=== PATIENT | male | born 1955 | race Caucasian/White ===

== ENCOUNTER 2020-03-31 09:39 | Inpatient (IN) | payer MEDICARE, OTHER ==
[~2020-03-31] VITALS: Ht 180.3 cm; Wt 95.5 kg
[2020-03-31] MEDS ORDERED: NITROGLYCERIN SINGLE TAB 0.4 MG SL ONE (10:23)
[2020-03-31] MEDS ORDERED: ASPIRIN 81 MG TABLET CHEW ONE (10:23)
[2020-03-31] MEDS ORDERED: ASPIRIN 81 MG TABLET CHEW PO ONE (10:30)
[2020-03-31] MEDS ORDERED: NITROGLYCERIN SINGLE TAB 0.4 MG SL PRN (10:30)
[2020-03-31] MEDS ORDERED: SODIUM CHLORIDE FLUSH 10ML SYR IVF ONE (10:30)
[2020-03-31] MEDS ORDERED: PLEASE ENTER ALLERGIES MC SCH (10:30)
--- NOTE | 2020-03-31 10:30 | NUR ---
First contact with pt. Pt c/o 02/05 chest tightness and SOB x2 days. Pt states he drove up from [place] x2 days ago. Pt speaking in 2-3 word sentences, resp rapid but lungs clear. Pt very SOB with speaking or exertion. PIV inserted and pt medicated per OCT. Continuous heart, oxygen and BP monitors applied, all safety measures observed.
[2020-03-31 10:45] LABS: BASOPHILS # (AUTO) 0.03 x10^3/uL (0-0.1); BASOPHILS % (AUTO) 0 % (0-1); EOSINOPHILS # (AUTO) 0.13 x10^3/uL (0-0.4); EOSINOPHILS % (AUTO) 2 % (1-7); LYMPHOCYTES # (AUTO) 1.96 x10^3/uL (1-3.4); LYMPHOCYTES % (AUTO) 22 % (22-44); MD NO; MEAN CORPUSCULAR HEMOGLOBIN 31.2 pg (27.5-34.5); MEAN CORPUSCULAR HGB CONC 33.2 g/dL (33.2-36.2); MEAN CORPUSCULAR VOLUME 93.9 fL (81-97); MEAN PLATELET VOLUME 8.5 fL (7.4-10.4); MONOCYTES # (AUTO) 0.89 x10^3/uL (0.2-0.8); MONOCYTES % (AUTO) 10 % (2-9); NEUTROPHILS # (AUTO) 5.82 x10^3/uL (1.8-6.8); NEUTROPHILS % (AUTO) 66 % (42-75); PLATELET COUNT 151 x10^3/uL (130-400); RED BLOOD COUNT 4.82 x10^6/uL (4.38-5.82); RED CELL DISTRIBUTION WIDTH 12.7 % (9.4-14.8)
[2020-03-31] MEDS ORDERED: MODA200T2 PO (10:52)
[2020-03-31] MEDS ORDERED: MEMA10TA PO (10:52)
[2020-03-31] MEDS ORDERED: PRAM0.255 PO (10:52)
[2020-03-31] MEDS ORDERED: AMLO-150 PO (10:52)
[2020-03-31] MEDS ORDERED: [UNRECOGNIZED DRUG - CODE] PO (10:52)
[2020-03-31] MEDS ORDERED: BUPR300T94 PO (10:52)
[2020-03-31] MEDS ORDERED: ESCI5TAB PO (10:52)
[2020-03-31] MEDS ORDERED: MECL-101 PO (10:52)
[2020-03-31] MEDS ORDERED: ATOR10TA PO (10:52)
[2020-03-31] MEDS ORDERED: LEVO75TA5 PO (10:52)
[2020-03-31 10:53] LABS: ALBUMIN 3.7 g/dL (3.4-5.0); ANION GAP 6 mmol/L (5-15); CALCIUM 8.6 mg/dL (8.5-10.1); CHLORIDE 108 mmol/L (98-107)
[2020-03-31 10:58] LABS: TROPONIN I < 0.015 ng/mL (0.000-0.045)
--- NOTE | 2020-03-31 10:59 | NUR ---
Pt states chest tightness unchanged after NTG admin. Pt placed on 2L O2 via NC. Pt provided pillow and positioned for comfort in bed.
--- NOTE | 2020-03-31 11:04 | NUR ---
Discussed pt condition with Dr. Vides. Orders recieved for 500mL NS bolus. IVf initiated per order.
[2020-03-31] MEDS ORDERED: DIPHENHYDRAMINE 50 MG/ML, 1ML ONE (11:27)
[2020-03-31] MEDS ORDERED: methylPREDNISolone SOD SUCC 125 MG/2 ML ONE (11:27)
[2020-03-31] MEDS ORDERED: DIPHENHYDRAMINE 50 MG/ML, 1ML IVPush ONE (11:30)
[2020-03-31] MEDS ORDERED: methylPREDNISolone SOD SUCC 125 MG/2 ML IVPush ONE (11:30)
[2020-03-31] MEDS ORDERED: SODIUM CHLORIDE 0.9% 1,000ML IVBOLUS ONE (11:30)
--- NOTE | 2020-03-31 11:43 | NUR ---
Pt medicated per MAR for CTA, POC discussed. Pt requests this RN to notify pt's SO Amador at [phone] once decision to admit or dc is made by .
--- NOTE | 2020-03-31 12:15 | NUR ---
Pt in CT.
[2020-03-31] MEDS ORDERED: OMNIPAQUE 350 MG/ML, 75ML BOTTLE ONE (12:26)
--- NOTE | 2020-03-31 12:34 | NUR ---
Pt back from CT. Pt resting in bed with eyes closed, resps appear less labored and slower. Pt reports decreased SOB but still present with exertion and extended talking. Pt repositioned for comfort in bed, denies other needs.
[2020-03-31] MEDS ORDERED: HEPARIN 25,000 UNITS/250ML PMX 250 ML ONE (12:48)
[2020-03-31] MEDS ORDERED: HEPARIN 5,000 UNITS/ML, 1ML ONE (12:48)
[2020-03-31] MEDS ORDERED: HEPARIN 5,000 UNITS/ML, 1ML IV PRN (13:00)
[2020-03-31] MEDS ORDERED: HEPARIN 5,000 UNITS/ML, 1ML IV ONE (13:00)
[2020-03-31] MEDS ORDERED: HEPARIN 25,000 UNITS/250ML PMX 250 ML IV PRN (13:00)
--- NOTE | 2020-03-31 13:06 | NUR ---
Attempted to call Amador to update him that pt will be admitted to the hospital. No answer, message left.
--- NOTE | 2020-03-31 14:02 | NUR ---
break RN note: pt resting on gurney, resps even and unlabored. pt able to speak in full sentences without difficulty. pt is nsr on color television console monitor with no ectopy, rate 80s. Echo in progress at bedside. awaiting echo read and dispo.
[2020-03-31] MEDS ORDERED: SODIUM CHLORIDE FLUSH 10ML SYR IVF PRN (15:00)
--- NOTE | 2020-03-31 15:25 | NUR ---
report given back to primary RN Jacqueline who is assuming care.
--- NOTE | 2020-03-31 15:31 | NUR ---
Pt resting in bed looking at his phone, BIANCA, denies needs.
--- NOTE | 2020-03-31 15:38 | NUR ---
Report called to Radha HOFF on med tele. Floor ready for pt transport.
--- NOTE | 2020-03-31 16:49 | NUR ---
Meal tray ordered for pt.
[2020-03-31] MEDS ORDERED: DOCUSATE 100 MG CAPSULE PO PRN (17:00)
[2020-03-31] MEDS ORDERED: ACETAMINOPHEN 325 MG TABLET PO PRN (17:00)
[2020-03-31] MEDS ORDERED: MECLIZINE 25 MG TABLET PO PRN (17:00)
[2020-03-31] MEDS ORDERED: hydrALAzine 20 MG/ML, 1ML IVPush PRN (17:00)
[2020-03-31] MEDS ORDERED: ONDANSETRON 2MG/ML, 2ML IVPush PRN (17:00)
[2020-03-31 17:09] VITALS: BP 150/88
[2020-03-31 17:10] VITALS: BP 150/88
[2020-03-31] MEDS: AMLODIPINE MC SCH (18:30)
[2020-03-31 19:59] VITALS: BP 157/88
[2020-03-31] MEDS ORDERED: ATORVASTATIN 10 MG TABLET PO SCH (21:00)
[2020-03-31] MEDS: RIVASTIGMINE 1.5 MG CAPSULE PO SCH (22:24)
[2020-03-31] MEDS: MEMANTINE 10MG TABLET PO SCH (22:24)
[2020-03-31] MEDS: PRAMIPEXOLE 0.25MG TABLET PO SCH (22:25)
[2020-04-01 01:03] VITALS: BP 133/81
[2020-04-01] MEDS: AMLODIPINE MC SCH ×2 (02:30→10:30)
[2020-04-01 03:09] LABS: CALCIUM 8.4 mg/dL (8.5-10.1); CHLORIDE 109 mmol/L (98-107); CREATININE 0.98 mg/dL (0.7-1.3)
[2020-04-01 03:11] LABS: BASOPHILS % (AUTO) 0 % (0-1); EOSINOPHILS # (AUTO) 0.02 x10^3/uL (0-0.4); EOSINOPHILS % (AUTO) 0 % (1-7); LYMPHOCYTES # (AUTO) 1.14 x10^3/uL (1-3.4); LYMPHOCYTES % (AUTO) 9 % (22-44); MD NO; MEAN CORPUSCULAR HEMOGLOBIN 31.4 pg (27.5-34.5); MEAN CORPUSCULAR HGB CONC 33.3 g/dL (33.2-36.2); MEAN CORPUSCULAR VOLUME 94.2 fL (81-97); MEAN PLATELET VOLUME 8.9 fL (7.4-10.4); MONOCYTES # (AUTO) 0.56 x10^3/uL (0.2-0.8); MONOCYTES % (AUTO) 5 % (2-9); NEUTROPHILS # (AUTO) 10.79 x10^3/uL (1.8-6.8); NEUTROPHILS % (AUTO) 86 % (42-75); PLATELET COUNT 147 x10^3/uL (130-400); RED BLOOD COUNT 4.71 x10^6/uL (4.38-5.82); RED CELL DISTRIBUTION WIDTH 12.7 % (9.4-14.8)
[2020-04-01 03:37] LABS: ANION GAP 10 mmol/L (5-15)
[2020-04-01 07:46] VITALS: BP 178/94
[2020-04-01 07:55] VITALS: BP 162/90
[2020-04-01] MEDS ORDERED: MODAFINIL HOMEMEDPO SCH (09:00)
[2020-04-01] MEDS ORDERED: ESCITALOPRAM 10MG TABLET PO SCH (09:00)
[2020-04-01] MEDS ORDERED: BUPROPION SR 150 MG TABLET PO SCH (09:00)
[2020-04-01] MEDS: PRAMIPEXOLE 0.25MG TABLET PO SCH (09:00)
[2020-04-01] MEDS ORDERED: AMLODIPINE 5 MG TABLET PO SCH ×2 (09:00→12:30)
[2020-04-01] MEDS ORDERED: LEVOTHYROXINE 75 MCG TABLET PO SCH (09:00)
[2020-04-01] MEDS: APIXABAN 5 MG TABLET PO SCH ×2 (09:00→09:19)
[2020-04-01] MEDS: RIVASTIGMINE 1.5 MG CAPSULE PO SCH (09:19)
[2020-04-01] MEDS: MEMANTINE 10MG TABLET PO SCH (09:21)
[2020-04-01] MEDS ORDERED: APIX5TAB PO (11:39)
[2020-04-01 13:00] VITALS: BP 169/105
[2020-04-01 13:45] VITALS: BP 160/99
== END 2020-04-01 14:52 | disposition home or self-care (01) | DRG 176 ==
LOC: ED 14:43 → SUATTDRO 14:52 → 4WST 14:56 → EDIP 14:58 → ED 14:58 → 4WST 17:37 → DCLOUNGE 04-01 14:40
PROVIDERS: ADMIT Hospitalist; ATTEND Hospitalist
DX: I26.99 Other pulmonary embolism without acute cor pulmonale (principal); I10 Essential (primary) hypertension; E03.9 Hypothyroidism, unspecified; E78.00 Pure hypercholesterolemia, unspecified; F02.80 Dementia in other diseases classified elsewhere, unspecified severity, without behavioral disturbance, psychotic disturbance, mood disturbance, and anxiety; F32.9 Major depressive disorder, single episode, unspecified; F41.1 Generalized anxiety disorder; G30.9 Alzheimer's disease, unspecified
CPT/HCPCS: 36415; 71045; 71275; 80048; 82040; 83735; 83880; 84100; 84443; 84484; 85025; 85379; 85520; 93005; 93306; G0378; J1644; Q9967; J1200; J2930; J7030